=== PATIENT | male | born 1950 | race Caucasian/White ===

== ENCOUNTER 2022-12-09 01:19 | Emergency (ER) | payer OTHER ==
[~2022-12-09] VITALS: Ht 175.3 cm; Wt 68.1 kg
[2022-12-09] MEDS ORDERED: CALCIUM CHLOR(10%) 100MG/ML 10ML SYRINGE IV ONE ×3 (01:20→01:47)
[2022-12-09] MEDS ORDERED: MAGNESIUM SULF 50% 40 MEQ/10 ML VL IV ONE (01:20)
[2022-12-09] MEDS ORDERED: SODIUM BICARBONATE 8.4% INJ 50ML SYRINGE IV ONE (01:20)
[2022-12-09] MEDS ORDERED: EPINEPHrine HCL 1 MG/10 ML SYRG IV ONE (01:20)
[2022-12-09] MEDS ORDERED: ETOMIDATE (2MG/ML) 20ML VIAL IV ONE (01:21)
[2022-12-09] MEDS ORDERED: ROCURONIUM 10MG/ML 10ML VIAL IV ONE (01:22)
[2022-12-09] MEDS ORDERED: EPINEPHrine HCL 1 MG/10 ML SYRG ONE ×2 (01:26→02:00)
[2022-12-09] MEDS ORDERED: DOBUTamine 1000MCG/ML 250 ML IV ONE (01:30)
[2022-12-09 01:31] VITALS: BP 55/35
[2022-12-09] MEDS ORDERED: SODIUM BICARBONATE 8.4% INJ 50ML SYRINGE ONE ×2 (01:33→01:47)
[2022-12-09] MEDS ORDERED: NOREPINEPHRINE 8 MG/250ML KIT 250 ML IV ONE (01:38)
== END 2022-12-12 09:58 ==
LOC: ER 01:19 → EDBD 01:19 → ER 12-12 09:58
DX: I46.9 Cardiac arrest, cause unspecified (principal); I31.4 Cardiac tamponade; I12.0 Hypertensive chronic kidney disease with stage 5 chronic kidney disease or end stage renal disease; E11.22 Type 2 diabetes mellitus with diabetic chronic kidney disease; N18.6 End stage renal disease; Z79.84 Long term (current) use of oral hypoglycemic drugs; Z99.2 Dependence on renal dialysis; Z98.890 Other specified postprocedural states
CPT/HCPCS: 31500; 33016; 36556; 92950; 93005; 99291; J0171; J1250; J3475; 94002